=== PATIENT | male | born 1985 | race Two or more races ===

== ENCOUNTER 2017-08-12 12:19 | Day surgery (SDC) | payer OTHER ==
[~2017-08-12] VITALS: Ht 170.2 cm; Wt 83.2 kg
[2017-08-12 12:49] VITALS: Ht 170.2 cm; Wt 83.2 kg
[2017-08-12] MEDS ORDERED: LEVOTHYROXINE (12:57)
[2017-08-12] MEDS ORDERED: SULINDAC (12:57)
[2017-08-12] MEDS ORDERED: VITAMIN D (12:57)
[2017-08-12] MEDS ORDERED: GEMFIBROZIL (12:57)
[2017-08-12] MEDS ORDERED: OMEP20CA16 PO (12:57)
[2017-08-12 13:21] VITALS: BP 100/53; PULSE 69; RESP 18
--- NOTE | 2017-08-12 13:36 | OPPN ---
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
[2017-08-12] MEDS ORDERED: MIDAZOLAM 1 MG/ML 2 ML INJ ONE (13:43)
[2017-08-12] MEDS ORDERED: FENTAnyl 50 MCG/ML VIAL ONE (13:43)
[2017-08-12 14:00] VITALS: BP 10/64; RESP 14
--- NOTE | 2017-08-13 09:16 | GILP ---
DATE OF PROCEDURE: NAME OF PROCEDURES: Esophagogastroduodenoscopy and biopsy. SURGEON: Dee Mercado MD PREOPERATIVE DIAGNOSES: 1. Abdominal pain. 2. Chronic heartburn. POSTOPERATIVE DIAGNOSES: 1. Gastroesophageal reflux disease. 2. Gastritis with erosions. 3. Gastric mucosal biopsies were taken for Helicobacter pylori test. INDICATION FOR THE PROCEDURE: Mr. Brown Taveras is a 31-year-old male patient who had upper abdominal pain and chronic heartburn, not responding to therapy. The patient was scheduled for endoscopic exa mination for further evaluation. The procedure and possible complications are well explained to the patient. The patient understood and consented to the procedure. DESCRIPTION OF PROCEDURE: Under the influence of fentanyl and Versed, the gastroscope was carefully introduced into the esophagus and under direct vision, it was advanced to the stomach and through t he pylorus into the duodenal bulb and descending duodenum. FINDINGS: ESOPHAGUS: The patient had gastroesophageal reflux disease. STOMACH: He had gastritis with erosions. Gastric mucosal biopsies were taken for H. pylori test. Duodenum was normal. He tolerated the procedure very well and there were no complication from the procedure. At the end of the procedure, he was awake with stable vital signs and he was discharged home to the care of his family. IMPRESSION: Please see postoperative diagnosis. PLAN: 1. Continue omeprazole. 2. Add Zantac 300 mg p.o. at bedtime. 3. Await H. pylori test report. Dictated By: DEE NGUYỄN/PRANAV Conf#: [id number] DID#: [id number]
--- NOTE | 2017-08-13 10:57 | CONS ---
DATE OF ADMISSION: DATE OF CONSULTATION: 07/15/2017 I thank you very much for this kind referral. HISTORY OF PRESENT ILLNESS: Mr. Brown Taveras is a 31-year-old male patient who has been referred to me for further evaluation of upper abdominal pain and chronic heartburn, not responding to therapy with omeprazole. There is no past history of peptic ulcer disease. Patient has been taking sulindac for knee pain. His appetite has been good, and there is no weight loss. No gallstones or liver disease. Patient also complains of constipation. No rectal bleeding. He is not a hypertensive or diabetic. No heart disease, lung problem or kidney disease. He has got hyperlipidemia. He also has got hypothyroidism. SOCIAL HISTORY: Nonsmoker. No alcohol abuse. FAMILY HISTORY: No family history of gastrointestinal tract neoplasm. ALLERGIES: NO DRUG ALLERGY. MEDICATION: 1. Omeprazole 20 mg p.o. b.i.d. 2. Gemfibrozil. 3. Levothyroxine. 4. Sulindac. PHYSICAL EXAMINATION: VITAL SIGNS: He is 5 feet 7 inches tall and weighs 180 pounds. HEART: Normal heart sounds. LUNGS: Clear. ABDOMEN: Soft. No masses. Normal bowel sounds. NEUROLOGICAL: Normal neurological exam. IMPRESSION: 1. Upper abdominal pain and chronic heartburn, not responding to therapy with omeprazole 20 mg twice a day. 2. Constipation. 3. Hyperlipidemia. 4. Hypothyroidism. 5. Patient is taking sulindac for knee pain. PLAN: Continue omeprazole. MiraLAX 17 g dissolved in a glass of water p.o. daily for constipation. Advised high-fiber diet. Endoscopic examination for further evaluation. The procedure and possible complications were well explained to the patient. He understands and consents to the procedure. I thank you once again. Patient name: Brown Taveras Dictated By: MD GOPI Núñez/antony/max /Document#: [id number] CC: Dennis Mercado MD;*End*
== END 2017-08-12 14:19 | disposition home or self-care (01) ==
LOC: GIL 12:19
PROVIDERS: ATTEND Internal Medicine Gastroenterology
DX: R10.10 Upper abdominal pain, unspecified (principal); K21.9 Gastro-esophageal reflux disease without esophagitis; K59.00 Constipation, unspecified; E78.5 Hyperlipidemia, unspecified; E03.9 Hypothyroidism, unspecified; K25.9 Gastric ulcer, unspecified as acute or chronic, without hemorrhage or perforation; K29.50 Unspecified chronic gastritis without bleeding
CPT/HCPCS: 43239; 88305; 88312; J2250; J3010; Z7610

== ENCOUNTER 2019-01-26 09:10 | Day surgery (SDC) | payer OTHER ==
[~2019-01-26] VITALS: Ht 170.2 cm; Wt 87.2 kg
[~2019-01-26 09:10] MED LIST: GEMFIBROZIL; LEVOTHYROXINE; OMEP20CA16 PO; SULINDAC; VITAMIN D
[2019-01-26 09:46] VITALS: Ht 170.2 cm; Wt 87.2 kg
[2019-01-26] MEDS ORDERED: simvastatin PO (10:01)
[2019-01-26] MEDS ORDERED: OMEP20CA16 PO (10:01)
[2019-01-26 10:10] VITALS: BP 118/76; PULSE 64; RESP 20
[2019-01-26] MEDS ORDERED: FENTAnyl 50 MCG/ML VIAL ONE (10:59)
[2019-01-26] MEDS ORDERED: MIDAZOLAM 1 MG/ML 2 ML INJ ONE (10:59)
[2019-01-26 11:18] VITALS: BP 114/73; PULSE 74; RESP 18
== END 2019-01-26 12:04 | disposition home or self-care (01) ==
LOC: GIL 09:10
PROVIDERS: ATTEND Internal Medicine Gastroenterology
DX: R19.4 Change in bowel habit (principal); K64.8 Other hemorrhoids
CPT/HCPCS: 45378; J2250; J3010; Z7610

== ENCOUNTER 2019-03-16 21:40 | Emergency (ER) | payer OTHER ==
[~2019-03-16] VITALS: Wt 87.0 kg
[~2019-03-16 21:40] MED LIST changes: -GEMFIBROZIL; -SULINDAC; -VITAMIN D; +simvastatin PO
[2019-03-17 01:00] VITALS: BP 128/89; PULSE 65; RESP 17
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
== END 2019-03-17 01:00 | disposition home or self-care (01) ==
LOC: FTE 21:40
DX: S06.0X1A Concussion with loss of consciousness of 30 minutes or less, initial encounter (principal); S79.912A Unspecified injury of left hip, initial encounter; Y04.0XXA Assault by unarmed brawl or fight, initial encounter
CPT/HCPCS: 70450; 73510; Z7502